=== PATIENT | female | born 1990 | race Caucasian/White ===

== ENCOUNTER 2021-07-21 08:50 | Emergency (ER) | payer SELFPAY ==
[~2021-07-21] VITALS: Ht 175.3 cm; Wt 140.6 kg
--- NOTE | 2021-07-21 09:04 | NUR ---
CAME IN FOR ON AND OFF MID CHEST SHARP PAIN RADIATING TO BACK x 3 DAYS. ALSO C/O BLE PAIN. TO ER BED 10, HOOKED TO PROCESS DESIGNER, SHOWS SINUS RHYTHM. CHANGED TO HOSP GOWN, WARM BLANKET PROVIDED, PATIENT AAO x 4. BREATHING EVEN AND UNLABORED. AWAITING MD BENNETT.
--- NOTE | 2021-07-21 09:06 | NUR ---
DR ALONSO AT BEDSIDE
--- NOTE | 2021-07-21 09:10 | NUR ---
MANAGER MEMBERSHIP AT BEDSIDE
--- NOTE | 2021-07-21 09:27 | NUR ---
TOW CAR DRIVER AT BEDSIDE
[2021-07-21 09:34] LABS: BASOPHILS % (AUTO) 0.6 % (0.0-2.0); EOSINOPHILS % (AUTO) 0.6 % (0.0-6.0); HEMATOCRIT 42 % (33-45); HEMOGLOBIN 14.1 g/dL (11.5-14.8); LYMPHOCYTES # (AUTO) 1.7 K/uL (0.8-4.8); LYMPHOCYTES % (AUTO) 22.6 % (20.0-44.0); MEAN CORPUSCULAR HGB CONC 33 g/dl (31.0-36.0); MEAN CORPUSCULAR VOLUME 89 fL (82-100); MONOCYTES # (AUTO) 0.5 K/uL (0.1-1.30); MONOCYTES % (AUTO) 6.5 % (2.0-12.0); NEUTROPHILS # (AUTO) 5.1 K/uL (1.8-8.9); NEUTROPHILS % (AUTO) 69.7 % (43.0-81.0); PLATELET COUNT (AUTO) 256 K/uL (150-450); RED BLOOD CELL COUNT(AUTO) 4.73 MIL/uL (4.0-5.2); WHITE BLOOD COUNT (AUTO) 7.4 K/uL (4.3-11.0)
[2021-07-21 09:48] LABS: CALCIUM, SERUM 8.5 mg/dL (8.5-10.1); CARBON DIOXIDE 28 mmol/L (21-32); CHLORIDE 107 mmol/L (98-107); CREATININE 0.8 mg/dL (0.6-1.3); GLUCOSE 82 mg/dL (74-106); SODIUM SERUM 138 mmol/L (136-145); UREA NITROGEN, BLOOD 14 mg/dL (7-18)
--- NOTE | 2021-07-21 10:00 | NUR ---
URINE SAMPLE COLLECTED AND SENT TO LAB
--- NOTE | 2021-07-21 10:07 | NUR ---
GANGA OH AT BEDSIDE
[2021-07-21] MEDS ORDERED: IBUP-1955 PO (13:12)
--- NOTE | 2021-07-21 13:41 | NUR ---
IV removed. Catheter intact and site benign. Pressure and 4x4 applied to site. No bleeding noted.Patient discharged to home in stable condition. Written and verbal after care instructions given. Patient verbalizes understanding of instruction.
[2021-07-21 13:43] VITALS: BP 126/62
== END 2021-07-21 13:43 | disposition home or self-care (01) ==
LOC: ER 08:55
DX: R07.89 Other chest pain (principal); Z91.040 Latex allergy status; Z91.018 Allergy to other foods; Z88.8 Allergy status to other drugs, medicaments and biological substances
CPT/HCPCS: 36415; 71045-TC; 80048-TC; 84484-TC; 84703-TC; 85025-TC; 85378-TC; 93970-TC